=== PATIENT | female | born 1970 | race Caucasian/White ===

== ENCOUNTER 2016-08-15 00:39 | Emergency (ER) | payer MEDICARE ==
[~2016-08-15] VITALS: Ht 175.3 cm; Wt 73.3 kg
[~2016-08-15 00:39] MED LIST: ALPR2TAB2 PO; HYDR-3144 PO; PROM25TA10 PO
[2016-08-15 00:40] VITALS: BP 139/91
== END 2016-08-15 01:24 | disposition home or self-care (01) ==
LOC: ED 00:50
DX: L97.519 Non-pressure chronic ulcer of other part of right foot with unspecified severity (principal); L89.92 Pressure ulcer of unspecified site, stage 2; M54.9 Dorsalgia, unspecified; G89.29 Other chronic pain; F12.10 Cannabis abuse, uncomplicated; F41.1 Generalized anxiety disorder
CPT/HCPCS: 99281

== ENCOUNTER 2016-08-16 14:02 | Emergency (ER) | payer MEDICARE ==
[~2016-08-16] VITALS: Ht 175.3 cm; Wt 73.0 kg
[2016-08-16 14:04] VITALS: BP 147/90
[2016-08-16] MEDS ORDERED: BACITRACIN ZINC OINT 500U/GM, 0.9 GM ONE (15:38)
== END 2016-08-16 15:48 | disposition home or self-care (01) ==
LOC: ED 15:42
DX: S91.332A Puncture wound without foreign body, left foot, initial encounter (principal); L03.116 Cellulitis of left lower limb; F17.210 Nicotine dependence, cigarettes, uncomplicated; X58.XXXA Exposure to other specified factors, initial encounter; Y93.89 Activity, other specified; Y92.009 Unspecified place in unspecified non-institutional (private) residence as the place of occurrence of the external cause; Y99.9 Unspecified external cause status
CPT/HCPCS: 99284

== ENCOUNTER 2016-11-10 18:33 | Emergency (ER) | payer MEDICARE ==
[~2016-11-10] VITALS: Ht 172.7 cm; Wt 79.3 kg
[2016-11-10 18:34] VITALS: BP 143/83
[2016-11-10] MEDS ORDERED: HYDROcodone/APAP 5/325 TABLET PO ONE (18:51)
[2016-11-10] MEDS ORDERED: HYDROcodone/APAP 5/325 TABLET ONE (18:55)
== END 2016-11-10 19:53 | disposition home or self-care (01) ==
LOC: ED 19:09
DX: S83.511A Sprain of anterior cruciate ligament of right knee, initial encounter (principal); S80.01XA Contusion of right knee, initial encounter; F17.200 Nicotine dependence, unspecified, uncomplicated; W22.8XXA Striking against or struck by other objects, initial encounter; Y93.89 Activity, other specified; Y92.811 Bus as the place of occurrence of the external cause; Y99.8 Other external cause status
CPT/HCPCS: 99284

== ENCOUNTER 2017-08-29 19:50 | Emergency (ER) | payer MEDICARE ==
[~2017-08-29] VITALS: Ht 175.3 cm; Wt 83.6 kg
[~2017-08-29 19:50] MED LIST changes: -HYDR-3144 PO; +HYDR-3245 PO
[2017-08-29 19:51] VITALS: BP 152/95
[2017-08-29] MEDS ORDERED: ONDANSETRON ODT 4 MG ONE (20:58)
[2017-08-29] MEDS ORDERED: KETOROLAC 30 MG/1 ML ONE (20:58)
[2017-08-29] MEDS ORDERED: DIAZEPAM 5 MG TABLET ONE (20:58)
[2017-08-29] MEDS ORDERED: KETOROLAC 30 MG/1 ML IM ONE (21:00)
[2017-08-29] MEDS ORDERED: ONDANSETRON ODT 4 MG PO ONE (21:00)
[2017-08-29] MEDS ORDERED: DIAZEPAM 5 MG TABLET PO ONE (21:00)
== END 2017-08-29 21:22 | disposition home or self-care (01) ==
LOC: ED 21:05
DX: S39.012A Strain of muscle, fascia and tendon of lower back, initial encounter (principal); X58.XXXA Exposure to other specified factors, initial encounter; Y93.89 Activity, other specified; Y92.89 Other specified places as the place of occurrence of the external cause; Y99.8 Other external cause status
CPT/HCPCS: 72110; 96372; 99284; J1885; Q0162

== ENCOUNTER 2018-01-20 23:05 | Emergency (ER) | payer MEDICARE ==
[~2018-01-20] VITALS: Ht 172.7 cm; Wt 79.6 kg
[2018-01-20 23:07] VITALS: BP 141/82
[2018-01-20] MEDS ORDERED: OXYcodone/APAP 5/325MG TABLET ONE (23:30)
[2018-01-20] MEDS ORDERED: ONDANSETRON ODT 4 MG PO ONE (23:30)
[2018-01-20] MEDS ORDERED: ONDANSETRON ODT 4 MG ONE (23:30)
[2018-01-20] MEDS ORDERED: OXYcodone/APAP 10/325MG TABLET PO ONE (23:30)
[2018-01-20] MEDS ORDERED: CLINDAMYCIN 300 MG CAPSULE ONE (23:53)
[2018-01-21] MEDS ORDERED: OXYcodone/APAP 5/325MG TABLET PO ONE
== END 2018-01-21 00:15 | disposition home or self-care (01) ==
LOC: ED 23:20
DX: K04.7 Periapical abscess without sinus (principal); F41.1 Generalized anxiety disorder; G89.29 Other chronic pain
CPT/HCPCS: 99283; Q0162

== ENCOUNTER 2018-09-08 10:21 | Emergency (ER) | payer MEDICARE ==
[~2018-09-08] VITALS: Ht 172.7 cm; Wt 86.1 kg
[2018-09-08 10:32] VITALS: BP 132/81
[2018-09-08] MEDS ORDERED: HYDROcodone/APAP 5/325 TABLET PO ONE (11:00)
[2018-09-08] MEDS ORDERED: HYDROcodone/APAP 5/325 TABLET ONE (11:31)
--- NOTE | 2018-09-08 12:27 | NUR ---
Patient given discharge instructions and they have confirmed that they understand the instructions. Patient ambulatory with steady gait and balance and left with prescription, d/c paperwork, air stirrup, and all personal belongings.
== END 2018-09-08 12:31 | disposition home or self-care (01) ==
LOC: ED 11:52
DX: S90.02XA Contusion of left ankle, initial encounter (principal); G89.29 Other chronic pain; Z88.1 Allergy status to other antibiotic agents; W22.8XXA Striking against or struck by other objects, initial encounter; Y93.89 Activity, other specified; Y92.009 Unspecified place in unspecified non-institutional (private) residence as the place of occurrence of the external cause; Y99.8 Other external cause status
CPT/HCPCS: 99284